=== PATIENT | male | born 1950 | race Caucasian/White ===

== ENCOUNTER 2017-02-17 05:42 | Day surgery (SDC) | payer MEDICARE ==
[~2017-02-17] VITALS: Ht 195.6 cm; Wt 131.3 kg
[~2017-02-17 05:42] MED LIST: ASA CHILDREN'S81 MG PO; AUGMENTIN875 MG PO; COLACE-DPS100 MG PO; COZAAR DPS50 MG PO; IONAMIN DPS15 MG PO; NORCO 5-325 TA1 EACH PO; PRAVACHOL20 MG PO; SYNTHROID DPS0.2 MG PO
--- NOTE | 2017-02-18 05:36 | OR ---
ADMIT: 02/17/2017 RM/LOC: [facility] MR#: [id number] [address] [id number] CHELA DOUGLAS [address] [place], [place] [id number] Operative/Delivery Room Report SEX: M AGE: 66 : 1950 SURGERY DATE: 02/17/2017 SURGEON: Enrike Torres MD PROCEDURE: Total colonoscopy with hot biopsy polypectomies. PREOPERATIVE DIAGNOSIS: Colon polyps. POSTOPERATIVE DIAGNOSES: 1. Diverticulosis. 2. Colon polyps. DESCRIPTION OF PROCEDURE: The patient was brought to the procedure room, placed in left lateral decubitus position. Informed consent had been obtained preoperatively. The risks and benefits including, but not limited to, perforation, sedation, and bleeding were discussed with the patient and agreed upon. All questions were answered, alternatives discussed, the patient agreed. TIVA was provided by the CUR[employer] WORK[employer] with propofol. Anal inspection, digital examination revealed no abnormalities or obstructing masses. Prostate was normal in size, texture, and contour without nodularity. Olympus videoendoscope, model CF-H180AL, was inserted into the rectum and advanced to the cecum using external pressure and positional change. The appendiceal orifice and ileocecal valve were identified. In the cecum, there were two polyps that were removed using hot biopsy forceps, this area was cauterized and retrieved. The remainder of the cecum, ascending, and transverse colon were normal. In descending and sigmoid, there were scattered diverticula. In the rectum, at the rectosigmoid junction, there was an adenomatous polyp that was removed in piecemeal fashion using hot biopsy forceps. This area was cauterized and retrieved. The scope was retroflexed. The anal verge appeared normal. The patient tolerated the procedure well. No complications were expected. Blood loss was less than 1 mL. He will call me in one week for his biopsy report, sooner if he should have any problems. Recommend he have repeat colonoscopy in 5 years unless signs or symptoms develop in the interval. Enrike Torres MD/ [facility]ides JOB #: [id number] CC: Enrike Torres, Attending Physician Lizandro Gay, Family Physician
== END 2017-02-17 09:30 | disposition home or self-care (01) ==
LOC: SSS 05:42
DX: K63.5 Polyp of colon (principal); K62.1 Rectal polyp; K57.30 Diverticulosis of large intestine without perforation or abscess without bleeding; I10 Essential (primary) hypertension; Z90.49 Acquired absence of other specified parts of digestive tract; Z98.890 Other specified postprocedural states